=== PATIENT | male | born 1960 | race Caucasian/White ===

== ENCOUNTER → 2017-01-04 | Outpatient (CLI) | payer MEDICARE, OTHER ==
[2017-01-04 16:36] LABS: Blood Urea Nitrogen 15 mg/dL (9-20); Non-African American GFR(MDRD) >60 (>60 ml/min/1.73 sqM)
--- NOTE | 2017-01-04 18:28 | CT ---
EXAMINATION TYPE: CT angio head neck DATE OF EXAM: 01/04/2017 HISTORY: Headache and bruit x 1 year. COMPARISON: NONE CT DLP: 1608.40 mGycm. Automated Exposure Control for Dose Reduction was Utilized. TECHNIQUE: CTA scan of the neck is performed without and with IV Contrast, patient injected with 65 mL of Omnipaque 350, axial images are obtained, coronal and sagittal reformatted images are reviewed. Three-D reconstructed images are created on an independent workstation and reviewed. FINDINGS: There is normal branching pattern of the great vessels on the aortic arch. There is arterial flow in the common internal and external carotid arteries bilaterally. There is minimal calcification at the right carotid artery bifurcation. There is bilateral arterial flow in the vertebral arteries. There i s patency of the vertebrobasilar artery system. There is arterial flow in the anterior middle and posterior cerebral arteries. I see no sign of aneur ysm or neovascularity. There is no sign of stenosis. There is no mass effect. There is normal contras t opacification of the venous sinuses. There is no evidence of arterial dissection. IMPRESSION: Negative CT angiogram of the neck. Negative CT angiogram of the brain. No evidence of stenosis. Minimal calcification at the right carot id artery bifurcation.
== END | disposition home or self-care (01) ==
LOC: RADCTMAIN 15:35
PROVIDERS: ATTEND Family Medicine
DX: R51 Headache (principal); R09.89 Other specified symptoms and signs involving the circulatory and respiratory systems
CPT/HCPCS: 82565; 84520; 70496; 70498; 36415; Q9967

== ENCOUNTER → 2017-07-13 | Outpatient (CLI) | payer MEDICARE, OTHER ==
--- NOTE | 2017-07-13 15:15 | XR ---
Left foot HISTORY: Open wound on fifth digit, diabetes 3 views of the left foot are submitted for images Degenerative changes present at the metatarsophalangeal joint. Digits are flexed which may limit sens itivity. Bone mineralization is maintained with the exception of the fifth digit which show some area s of lucency in the lateral exam. There is a plantar calcaneal spur. IMPRESSION: Findings may be due to osteomyelitis of the fifth digit.
== END ==
LOC: RADXRYALE 13:30
PROVIDERS: ATTEND Physician Assistant Medical
DX: S91.105A Unspecified open wound of left lesser toe(s) without damage to nail, initial encounter (principal)

== ENCOUNTER → 2017-08-15 | Outpatient (CLI) | payer MEDICARE ==
[2017-08-15 08:15] LABS: HCT 46.3 % (39.0-53.0); MCH 32.2 pg (25.0-35.0); MCHC 34.5 g/dL (31.0-37.0); MCV 93.4 fL (80.0-100.0); Mean Platelet Volume 6.9; Platelet Count 193 k/uL (150-450); RBC 4.96 m/uL (4.30-5.90); RDW 13.3 % (11.5-15.5)
[2017-08-15 10:45] LABS: ALT 78 U/L (21-72); AST 47 U/L (17-59); Albumin 4.2 g/dL (3.5-5.0); Alkaline Phosphatase 70 U/L (38-126); Anion Gap 15 mmol/L; Blood Urea Nitrogen 17 mg/dL (9-20); C Reactive Protein <5.0 mg/L (<10.0); Calcium 9.7 mg/dL (8.4-10.2); Carbon Dioxide 28 mmol/L (22-30); Chloride 103 mmol/L (98-107); Glucose 151 mg/dL (74-99); Potassium 4.2 mmol/L (3.5-5.1); Sodium 146 mmol/L (137-145); Total Bilirubin 0.5 mg/dL (0.2-1.3); Total Protein 7.1 g/dL (6.3-8.2)
[2017-08-15 11:57] LABS: Erythrocyte Sedimentation Rate 2 mm/hr (0-15)
--- NOTE | 2017-08-15 12:18 | NM ---
EXAMINATION TYPE: NM bone 3 phase DATE OF EXAM: 08/15/2017 COMPARISON: Left foot 07/13/2017 HISTORY: Osteomyelitis Triple phase bone scintigraphy was performed following the injection of25.4 mCi Tc 99m MDP. Immediat e images and 3 hours post injection images acquired. FINDINGS: Increased blood flow and blood pool activity noted to the lateral digits of the left foot, focal upta ke is noted at the fifth digit of the left foot on delayed imaging. Uptake within the region of the m etatarsophalangeal joints right greater than left, midfoot bilaterally likely degenerative. IMPRESSION: Findings suggest osteomyelitis fifth digit left foot
[2017-08-15 16:45] LABS: Hemoglobin A1C 6.5 % (4.0-6.0)
== END | disposition home or self-care (01) ==
LOC: RADNMMAIN 07:36
PROVIDERS: ATTEND Thoracic Surgery (Cardiothoracic Vascular Surgery)
DX: E13.621 Other specified diabetes mellitus with foot ulcer (principal); E63.8 Other specified nutritional deficiencies; M86.8X8 Other osteomyelitis, other site; L97.519 Non-pressure chronic ulcer of other part of right foot with unspecified severity
CPT/HCPCS: 84134; 80053; 85652; 85027; 86140; 83036; 78315; 36415; A9503; 99212

== ENCOUNTER → 2020-04-28 | Outpatient (CLI) | payer MEDICARE, OTHER ==
--- NOTE | 2020-04-28 17:04 | XR ---
EXAMINATION TYPE: XR abdomen 1V DATE OF EXAM: 04/28/2020 3:36 PM CLINICAL HISTORY: Generalized abdominal pain. Gross hematuria. Right flank pain. TECHNIQUE: Frontal images of the abdomen and pelvis were obtained COMPARISON: None. FINDINGS: 10 mm calcification over the left renal upper pole. Many calcifications within the pelvis a ppear vascular. Visualized bowel gas pattern is nonspecific. No organomegaly. Degenerative changes of the spine. IMPRESSION: 1. 10 mm calcification over the left renal shadow may represent nephrolithiasis. 2. Calcifications over the pelvis appear vascular. 3. Nonspecific bowel gas pattern.
== END | disposition home or self-care (01) ==
LOC: RADXRYALE 15:18
PROVIDERS: ATTEND Family Medicine
DX: N28.89 Other specified disorders of kidney and ureter (principal)
CPT/HCPCS: 74018

== ENCOUNTER → 2020-05-13 | Outpatient (CLI) | payer MEDICARE, OTHER ==
--- NOTE | 2020-05-13 15:50 | US ---
EXAMINATION TYPE: US kidneys/renal and bladder DATE OF EXAM: 05/13/2020 COMPARISON: NONE CLINICAL HISTORY: R10.84 abd pain, R3.00 dysuria. Pain and hematuria EXAM MEASUREMENTS: Right Kidney: 14.0 x 5.7 x 7.0 cm Left Kidney: 12.4 x 6.1 x 5.7 cm Right Kidney: Cystic area mid pole 6.9 x 5.2 x 6.4 cm . This appears simple. Left Kidney: Echogenic focus with posterior shadowing compatible with a renal Stone seen upper pole1. 3 x 1.1 x 1.4 cm Bladder: Anechoic Bilateral Jets seen: Yes IMPRESSION: 1. Nonobstructing renal stone superior pole left kidney. 2. Large simple cyst right kidney
== END | disposition home or self-care (01) ==
LOC: RADUSWWP 15:03
PROVIDERS: ATTEND Family Medicine
DX: N20.0 Calculus of kidney (principal); N28.1 Cyst of kidney, acquired; R35.0 Frequency of micturition; R82.90 Unspecified abnormal findings in urine
CPT/HCPCS: 76770

== ENCOUNTER → 2020-06-01 | Outpatient (CLI) | payer MEDICARE, OTHER ==
[2020-06-01 14:19] LABS: African American GFR (CKD) >90 (>60 ml/min/1.73 sqM); Blood Urea Nitrogen 17 mg/dL (9-20); Non-African American GFR(CKD) >90 (>60 ml/min/1.73 sqM)
--- NOTE | 2020-06-01 15:51 | CT ---
EXAMINATION TYPE: CT urogram wo/w con DATE OF EXAM: 06/01/2020 COMPARISON: None HISTORY: HEMATURIA CT DLP: 4452.4 mGycm CONTRAST: Performed and with IV Contrast, patient injected with 100 mL of Isovue 300. CT Urography was performed with unenhanced followed by enhanced images of the kidneys, ureters and ur inary bladder. Delayed images were obtained. 3d reconstruction was perfromed at a separate work sta tion. FINDINGS: KIDNEYS/BLADDER: No hydronephrosis. The right kidney demonstrates 3 mm calculi which are nonobstruct ing. The left kidney demonstrates a nonobstructing 9.6 mm calculus at its mid pole. [address] midpole right kidney. No distinct solid renal mass. Urinary bladder grossly unremarkable. LUNG BASES-: No visible nodule. No infiltrate. LIVER/GB: No calcified gallstones. No space occupying hepatic lesion. Biliary tree is of normal ca liber. PANCREAS: No inflammation. No distinct mass. SPLEEN: No splenic enlargement. No lesion seen. ADRENALS: No nodule. No thickening. BOWEL: Normal appendix. Normal bowel caliber. No inflammation. GENITAL ORGANS: No gross abnormality. LYMPH NODES: No greater than 1cm abdominal or pelvic lymph nodes are appreciated. AORTA: No significant abnormality. OSSEOUS STRUCTURES: No significant abnormality is seen. OTHER: No significant additional abnormality is seen. IMPRESSION: 1. Nonobstructing nephrolithiasis as noted above.
== END | disposition home or self-care (01) ==
LOC: RADCTMAIN 13:33
PROVIDERS: ATTEND Urology
DX: N20.0 Calculus of kidney (principal); Z91.041 Radiographic dye allergy status
CPT/HCPCS: 82565; 84520; 74178; 36415; 74400; Q9967

== ENCOUNTER → 2021-05-26 | Outpatient (CLI) | payer MEDICARE ==
[2021-05-26 14:33] LABS: Basophils % (A) 1 %; Eosinophils # (A) 0.3 k/uL (0-0.7); Eosinophils % (A) 5 %; HGB 15.3 gm/dL (13.0-17.5); Lymphocytes # (A) 1.6 k/uL (1.0-4.8); Lymphocytes % (A) 27 %; MCH 32.6 pg (25.0-35.0); MCHC 33.9 g/dL (31.0-37.0); MCV 96.1 fL (80.0-100.0); Mean Platelet Volume 7.9; Monocytes # (A) 0.4 k/uL (0-1.0); Monocytes % (A) 7 %; Neutrophils # (A) 3.4 k/uL (1.3-7.7); Neutrophils % (A) 58 %; Platelet Count 198 k/uL (150-450); RBC 4.69 m/uL (4.30-5.90); RDW 12.7 % (11.5-15.5); WBC 5.9 k/uL (3.8-10.6)
[2021-05-26 14:46] LABS: African American GFR (CKD) >90 (>60 ml/min/1.73 sqM); Anion Gap 11 mmol/L; Blood Urea Nitrogen 14 mg/dL (9-20); Calcium 9.6 mg/dL (8.4-10.2); Carbon Dioxide 22 mmol/L (22-30); Chloride 104 mmol/L (98-107); Glucose 203 mg/dL (74-99); Non-African American GFR(CKD) >90 (>60 ml/min/1.73 sqM); Potassium 4.4 mmol/L (3.5-5.1); Sodium 137 mmol/L (137-145)
== END | disposition home or self-care (01) ==
LOC: LABPAT 13:23
PROVIDERS: ATTEND Urology
DX: Z01.812 Encounter for preprocedural laboratory examination (principal); N20.0 Calculus of kidney
CPT/HCPCS: 80048; 85025; 87086

== ENCOUNTER 2021-06-03 07:31 | Day surgery (SDC) | payer MEDICARE ==
--- NOTE | 2021-05-31 09:50 | P.GSHP ---
History of Present Illness H&P Date: 05/31/21 Chief Complaint: Recurrent UTI The patient is a 60-year-old white male with recurrent UTIs. He has been treated with multiple courses of antibiotics, including Augmentin, Bactrim, and ciprofloxacin. It is felt that the most likely causes of his recurrent UTIs are infected urinary calculi are chronic prostatitis. CT scan shows a 4 mm mid pole right renal calculus and a 1 cm left upper pole calculus. He now comes for ureteroscopic removal of the calculi. - Constitutional Constitutional: Denies chills, Denies fever - Genitourinary (Male) Genitourinary: Reports hematuria, Reports kidney stones, Denies dysuria, Denies flank pain Past Medical History Past Medical History: Atrial Fibrillation, COPD, Diabetes Mellitus, Hyperlipidemia, Hypertension, Sleep Apnea/CPAP/BIPAP, Vascular Disorder Additional Past Medical History / Comment(s): wound 5th digit left foot,no cpap,kidney stones History of Any Multi-Drug Resistant Organisms: None Reported Past Surgical History: Hernia Repair Additional Past Surgical History / Comment(s): lithotripsy with ureter stent,inguinal hernia Past Anesthesia/Blood Transfusion Reactions: No Reported Reaction Past Psychological History: Anxiety, Bipolar, Depression Past Alcohol Use History: None Reported Past Drug Use History: None Reported - Past Family History Mother Family Medical History: Deep Vein Thrombosis (DVT) Additional Family Medical History / Comment(s): hematoma Father Family Medical History: Cancer Additional Family Medical History / Comment(s): lung Medications and Allergies Home Medications Medication Instructions Recorded Confirmed Type Aspirin 325 mg PO DAILY 08/04/17 09/05/17 History Atorvastatin Calcium [Lipitor] 40 mg PO HS 08/04/17 09/05/17 History Cholecalciferol [Vitamin D3] 2,000 unit PO DAILY 08/04/17 09/05/17 History Digoxin [Lanoxin] 250 mcg PO DAILY 08/04/17 09/05/17 History Garlic 2 each PO DAILY 08/04/17 09/05/17 History HYDROcodone/APAP 7.5-325MG [[place] 1 tab PO Q6HR PRN 08/04/17 09/05/17 History 7.5-325] Ibuprofen [Motrin] 800 mg PO TID PRN 08/04/17 09/05/17 History Insulin NPH Hum/Reg Insulin Hm 100 unit SQ TID 08/04/17 09/05/17 History [NovoLIN 70-30 100 UNIT/ML VIAL] Insulin Regular, Human [NovoLIN R] 0 unit SQ AC-TID PRN 08/04/17 09/05/17 History Insulin Regular, Human [NovoLIN R] 40 unit SQ AC-TID 08/04/17 09/05/17 History Losartan Potassium [Cozaar] 100 mg PO DAILY 08/04/17 09/05/17 History Metoprolol Tartrate 25 mg PO BID 08/04/17 09/05/17 History Multivitamins, Thera [Multivitamin 1 tab PO DAILY 08/04/17 09/05/17 History (formulary)] [place]-3/Dha/Epa/Fish Oil [Fish Oil 1 each PO DAILY 08/04/17 09/05/17 History EC 1,200 mg Softgel] QUEtiapine FUMARATE [SEROquel XR] 100 mg PO HS 08/04/17 09/05/17 History Vitamin E 400 unit PO DAILY 08/04/17 09/05/17 History hydroCHLOROthiazide 25 mg PO DAILY 08/04/17 09/05/17 History [Hydrochlorothiazide] metFORMIN HCL [Glucophage] 1,000 mg PO BID 08/04/17 09/05/17 History Allergies Allergy/AdvReac Type Severity Reaction Status Date / Time Iodinated Contrast Media Allergy "passed Verified 09/05/17 10:42 [Iodinated Contrast- Oral out" and IV Dye] Surgical - Exam - General well developed, well nourished, no distress - Respiratory normal respiratory effort - Abdomen Abdomen: soft, non tender, no guarding, no rigid, no rebound - Genitourinary normal penis with no external lesions, testicles non-tender - Rectum Rectum: normal sphincter tone, no masses, other (Prostate mildly enlarged and smooth) - Psychiatric oriented to time, oriented to person, oriented to place, speech is normal, memory intact Assessment and Plan (1) Calculus of kidney Status: Acute Code(s): N20.0 - CALCULUS OF KIDNEY SNOMED Code(s): 86057476 Plan: Cystoscopy, bilateral ureteroscopy with Holmium laser lithotripsy and possible stone basketing, bilateral ureteral stent insertion. The procedure has been reviewed in detail with the patient. The anticipated course was reviewed, as were potential risks which include anesthesia, bleeding, infection, and ureteral injury. The possible need for secondary treatment has been discussed. The patient is aware that it cannot be determined with certainty whether or not the calculi are indeed the cause of his recurrent UTIs.
[2021-06-01 14:57] VITALS: BMI 42.3
[~2021-06-03 07:31] MED LIST: AMPICILLIN 2,000 MG in SODIUM CHLORIDE 0.9% 100 ML IVPB PRN; GENTAMICIN 160 MG in SODIUM CHLORIDE 0.9% 100 ML IVPB PRN; LACTATED RINGERS 1,000 ML IV SCH; LIDOCAINE 1% (10MG/ML) FOR IV START INTRADERMA PRN
[2021-06-03 08:25] LABS: Glucose,Whole Blood 110 mg/dL (75-99)
[2021-06-03] MEDS: ONDANSETRON 4 MG/2 ML VIAL IVP ONE ×2 (08:25→11:16)
[2021-06-03] MEDS ORDERED: ONDANSETRON 4 MG/2 ML VIAL ONE ×2 (08:26→11:14)
--- NOTE | 2021-06-03 08:47 | XR ---
EXAMINATION TYPE: XR KUB DATE OF EXAM: 06/03/2021 COMPARISON: None INDICATION: Renal calculus TECHNIQUE: Single view abdomen supine view FINDINGS: There is a normal bowel gas pattern. Psoas margins are normal. No organomegaly is present. There is a 1.3 x 0.6 cm calcification overlying the mid left kidney. IMPRESSION: 1. Left renal stone
[2021-06-03] MEDS ORDERED: PHENYLEPHRINE-0.9% NACL SYG 1,000 MCG/10 ML SYRINGE ONE (09:15)
[2021-06-03] MEDS ORDERED: SUCCINYLCHOLINE CHLORIDE VIAL 200 MG/10 ML VIAL IV ONE (09:15)
[2021-06-03] MEDS ORDERED: fentaNYL (PF) 50 MCG/ML 2 ML AMP ONE (09:15)
[2021-06-03] MEDS ORDERED: LIDOCAINE 1% INJ 10MG/ML (20 ML MDV) ONE (09:15)
[2021-06-03] MEDS ORDERED: MIDAZOLAM 2 MG/2 ML VIAL ONE (09:15)
[2021-06-03] MEDS ORDERED: GLYCOPYRROLATE 0.2 MG/ML 2 ML VIAL ONE (09:15)
[2021-06-03] MEDS ORDERED: PROPOFOL 10 MG/ML 20 ML VIAL IV ONE (09:15)
[2021-06-03] MEDS ORDERED: NEOSTIGMINE 1 MG/ML 10 ML VIAL ONE (09:15)
[2021-06-03] MEDS ORDERED: ROCURONIUM 10 MG/ML (5 ML VIAL) IV ONE (09:15)
[2021-06-03] MEDS ORDERED: LACTATED RINGERS 1,000 ML IV ONE (10:13)
[2021-06-03 11:16] VITALS: TEMP 97.2
[2021-06-03] MEDS: HYDROmorphone 0.5 MG/0.5 ML SYRINGE IVP PRN ×4 (11:26→11:51)
--- NOTE | 2021-06-03 11:32 | FL ---
EXAMINATION TYPE: FL guidance operating room DATE OF EXAM: 06/03/2021 HISTORY: Fluoroscopy time 2 minutes and 38 seconds of fluoroscopy provided. IMPRESSION: 1. Fluoroscopy time.
[2021-06-03 12:08] LABS: Glucose,Whole Blood 155 mg/dL (75-99)
[2021-06-03] MEDS ORDERED: KETOROLAC 30 MG/ML 1 ML VIAL ONE (12:46)
[2021-06-03] MEDS ORDERED: KETOROLAC 15 MG/ML 1 ML VIAL IVP ONE (12:48)
[2021-06-03 13:37] VITALS: PULSE 65
[2021-06-03 13:51] VITALS: BP 138/73; RESP 16
--- NOTE | 2021-06-03 17:03 | P.OP ---
Date of Procedure: 06/03/21 Preoperative Diagnosis: Bilateral renal calculi Postoperative Diagnosis: Same Procedure(s) Performed: Cystoscopy, bilateral ureteroscopy with Holmium laser lithotripsy and stent placement, stone basket removal of right renal calculus Anesthesia: GETA Surgeon: Christiano Marcail Estimated Blood Loss (ml): 10 IV fluids (ml): 1,100 Pathology: other (Stone fragments, sent for chemical analysis) Condition: stable Disposition: PACU Indications for Procedure: The patient is a 60-year-old white male with recurrent UTIs. He has been treated with multiple courses of antibiotics, including Augmentin, Bactrim, and ciprofloxacin. It is felt that the most likely causes of his recurrent UTIs are infected urinary calculi are chronic prostatitis. CT scan shows a 4 mm mid pole right renal calculus and a 1 cm left upper pole calculus. He now comes for ureteroscopic removal of the calculi. Operative Findings: 4 mm right renal calculus, removed completely. Several tiny left renal calculi fragmented. Large left renal calculus not seen. Description of Procedure: The patient was taken to the operating room and placed in the dorsolithotomy position, with legs supported in Corey stirrups. The external genitalia was prepped and draped sterilely. The 30 lens was used to introduce the 21-Ethiopian Garsia cystoscopic sheath through the urethra and into the bladder under direct vision. The prostatic urethra showed evidence of moderate lateral lobe enlargement, along with a median lobe. The bladder was examined in its entirety. Both ureteral orifices were normal anatomic location and configuration, and clear urine effluxed from both. No tumors or foreign bodies were seen. A 0.038 inch Glidewire was passed through the cystoscope. The right ureteral orifice was cannulated, and the Glidewire was advanced up to the renal pelvis. The cystoscope was removed, and an 11/13-Ethiopian ureteral access catheter was passed over the wire, up to the proximal ureter. The flexible ureteroscope was then passed through the ureteral access catheter sheath, up to the right renal pelvis. Each calyx was examined. A 4 mm calculus was seen within the mid pole calyx. The 272 micron Holmium laser probe was passed through the ureteroscope, and lithotripsy was performed. After fragmenting the stone, the stone baskets were removed using a 1.9-Ethiopian 0 tip nitinol basket. After ensuring there were no residual calculi, the ureteroscope was removed along with the ureteral access catheter sheath. The same procedure was then repeated on the left side. However, the 1 cm left renal calculus could not be identified. Fluoroscopy was utilized to determine the location of the calculus, but that calyx could not be located, likely due to infundibular stenosis. A dimple in the area of the anticipated infundibulum was seen, and this was lasered with the hopes that it would open a stenotic infundibulum, but none was seen. Several small calculi were encountered and fragmented. The Glidewire was passed through the ureteroscope, which was removed along with the ureteral access catheter sheath. Pullback ureteroscopy showed no evidence of ureteral trauma. The Glidewire was backloaded through the cystoscope, which was passed into the bladder. A 28 cm, 4.8-Ethiopian double-J ureteral stent was placed over the wire. Proper stent positioning was verified fluoroscopically and endoscopically. The same was repeated on the contralateral side. The bladder was emptied and the cystoscope removed. The patient tolerated the procedure well and was taken to the recovery room in stable condition. [facility] [place] Report: Procedure Acuity: Elective Stone Size and Location: 4 mm, right mid pole calyx Ureteral Dilation: No Ureteral Access Sheath Used: Yes Stone Sent for Analysis: Yes All Stones/Fragments Were Removed with a Basket: Yes Complications: No Preoperative Antibiotics Given: Yes Stent Placed: Yes If Stent Placed, Was String Left Attached: No If Stent Placed, When is it to be Removed: 1 week Discharge Medications: Tamsulosin
== END 2021-06-03 16:27 | disposition home or self-care (01) ==
LOC: OR 07:31
PROVIDERS: ATTEND Urology
DX: N20.0 Calculus of kidney (principal); I48.91 Unspecified atrial fibrillation; J44.9 Chronic obstructive pulmonary disease, unspecified; E11.9 Type 2 diabetes mellitus without complications; E78.5 Hyperlipidemia, unspecified; I10 Essential (primary) hypertension; F41.9 Anxiety disorder, unspecified; G47.30 Sleep apnea, unspecified; F31.9 Bipolar disorder, unspecified; Z87.440 Personal history of urinary (tract) infections; Z79.899 Other long term (current) drug therapy; Z79.4 Long term (current) use of insulin; Z91.041 Radiographic dye allergy status
CPT/HCPCS: 80162; 82365; 74018; 52356; C2625; C1769 ×2; J2250; J0330; J2710; J2405; J2001; J3010; J1580; J0290; J1885; J2370; J2704; J1170

== ENCOUNTER → 2024-04-09 | Outpatient (CLI) | payer MEDICARE, OTHER ==
--- NOTE | 2024-04-09 11:35 | XR ---
EXAMINATION TYPE: XR shoulder complete RT DATE OF EXAM: 04/09/2024 COMPARISON: NONE HISTORY: Pain TECHNIQUE: Three views are submitted. FINDINGS: The osseous structures are intact. There is no acute fracture or dislocation. Moderate hypertrophic arthropathy AC joint. Mild glenohumeral joint arthropathy with spur or calcification along the lower margin of the glenoid. Calcification along the humeral head often associated with calcific tendinosis IMPRESSION: 1. AC joint hypertrophic arthropathy correlate for rotator cuff impingement. 2. Correlate for calcific tendinosis of the rotator cuff. 3. Mild glenohumeral joint arthropathy. [facility], , 04/09/2024 11:32 AM
== END | disposition home or self-care (01) ==
LOC: RADXRYALE 11:18
PROVIDERS: ATTEND Family Medicine
DX: M19.011 Primary osteoarthritis, right shoulder (principal)

== ENCOUNTER → 2024-06-25 | Outpatient (CLI) | payer MEDICARE, OTHER ==
--- NOTE | 2024-06-25 21:06 | XR ---
EXAMINATION TYPE: XR cervical spine comp DATE OF EXAM: 06/25/2024 3:11 PM COMPARISON: None CLINICAL INDICATION: Male, 63 years old with history of [id number] CERVICALGIA,RT SHLD PAIN,PAR ; YCH TECHNIQUE: The cervical spine was imaged in frontal, lateral, odontoid and bilateral oblique. FINDINGS: The osseous structures show normal alignment without evidence of an acute fracture. There are osteoph ytes noted throughout the cervical spine on the anterior and lateral aspects of the vertebral bodies. The intervertebral disk spaces are narrowed at multiple levels. Pedicles are intact. Soft tissues a re within normal limits. The odontoid appears intact. IMPRESSION: 1. No fracture or dislocation. 2. Mild degenerative disc disease changes of the cervical spine. [facility], , 06/25/2024 9:04 PM
== END | disposition home or self-care (01) ==
LOC: RADXRYALE 14:56
PROVIDERS: ATTEND Family Medicine
DX: M50.30 Other cervical disc degeneration, unspecified cervical region (principal); M25.511 Pain in right shoulder; R20.2 Paresthesia of skin
CPT/HCPCS: 72050